=== PATIENT | female | born 1950 | race Caucasian/White ===

== ENCOUNTER 2021-11-03 10:42 | Inpatient (IN) | payer MEDICARE, OTHER ==
[~2021-11-03] VITALS: Ht 152.4 cm; Wt 65.8 kg
--- NOTE | 2021-11-03 10:59 | NUR ---
BIB FAMILY REQUESTING PSYCH EVAL. CALLING 911 AND WANDER OUT THE HOUSE, AAOX2, BREATHING EVEN AND NON LABORED, CONNECTED TO MONITOR, CHANGED INTO A GOWN, PROVIDED WARM BLANKET FOR COMFORT, AWAITING MD ORDERS
[2021-11-03 12:04] LABS: BASOPHILS # (AUTO) 0.1 K/uL (0.0-0.2); BASOPHILS % (AUTO) 0.6 % (0.0-2.0); EOSINOPHILS % (AUTO) 0.2 % (0.0-6.0); HEMATOCRIT 39 % (33-45); HEMOGLOBIN 12.6 g/dL (11.5-14.8); LYMPHOCYTES # (AUTO) 2.3 K/uL (0.8-4.8); LYMPHOCYTES % (AUTO) 15.6 % (20.0-44.0); MEAN CORPUSCULAR HGB CONC 33 g/dl (31.0-36.0); MEAN CORPUSCULAR VOLUME 87 fL (82-100); MONOCYTES # (AUTO) 0.8 K/uL (0.1-1.30); MONOCYTES % (AUTO) 5.1 % (2.0-12.0); NEUTROPHILS # (AUTO) 11.5 K/uL (1.8-8.9); NEUTROPHILS % (AUTO) 78.5 % (43.0-81.0); PLATELET COUNT (AUTO) 444 K/uL (150-450); RED BLOOD CELL COUNT(AUTO) 4.45 MIL/uL (4.0-5.2); WHITE BLOOD COUNT (AUTO) 14.7 K/uL (4.3-11.0)
--- NOTE | 2021-11-03 12:08 | NUR ---
SW Note: SW was called from patient's son Daniel ([phone]) and Maged ([phone]) concerned about their mother. She shared that pt has been psychotic and has been hitting family members. They reported that pt's boyfriend three days ago and she has become more psychotic. They expressed that pt will need placement and they are unable to take care of pt. MARY notified director Angelica Irving.
--- NOTE | 2021-11-03 12:20 | NUR ---
URINE COLLECTED AND SENT TO LAB
[2021-11-03 12:24] LABS: CALCIUM, SERUM 8.7 mg/dL (8.5-10.1); CARBON DIOXIDE 24 mmol/L (21-32); CHLORIDE 99 mmol/L (98-107); CREATININE 0.8 mg/dL (0.6-1.3); GLUCOSE 107 mg/dL (74-106); POTASSIUM 3.8 mmol/L (3.5-5.1); SODIUM SERUM 133 mmol/L (136-145); UREA NITROGEN, BLOOD 23 mg/dL (7-18)
--- NOTE | 2021-11-03 12:30 | NUR ---
PER ELLEN GARZA; PT IS MEDICALLY CLEAR
[2021-11-03 12:31] LABS: ACETAMINOPHEN 14 ug/ml (10-30); ALANINE AMINOTRANSFERASE 36 U/L (12-78); ALBUMIN 3.5 g/dL (3.4-5.0); ALCOHOL, BLOOD < 3 mg/dL (0-0); ALKALINE PHOSPHATASE 71 U/L (46-116); ASPARTATE AMINOTRANSFERASE 26 U/L (15-37); BILIRUBIN,DIRECT 0.1 mg/dL (0.0-0.2); BILIRUBIN,TOTAL 0.6 mg/dL (0.2-1.0); TOTAL PROTEIN, SERUM 7.3 g/dL (6.4-8.2)
--- NOTE | 2021-11-03 12:58 | NUR ---
COVID ANTIGEN SWAB COLLECTED AND SENT TO LAB
[2021-11-03 14:41] LABS: BILIRUBIN,URINE NEGATIVE (NEGATIVE); COLOR,URINE YELLOW (YELLOW); LEUKOCYTE ESTERASE ,URINE NEGATIVE (NEGATIVE); NITRITE, URINE NEGATIVE (NEGATIVE); PROTEIN,URINE TRACE mg/dl (NEGATIVE); UGLUCOSE NEGATIVE (NEGATIVE); UROBILINOGEN,URINE 0.2 EU/dL (0.2)
[2021-11-03 15:32] LABS: BACTERIA,URINE None seen /HPF (None Seen); RBC,URINE 0-2 /HPF (0-2); SQUAMOUS EPITHELIAL CELL,UR 0-2 /HPF (None Seen); WBC,URINE 0-2 /HPF (0-3)
[2021-11-03 15:33] LABS: MUCUS,URINE Few /LPF (None Seen)
[2021-11-03] MEDS ORDERED: LURA40TA PO (15:50)
[2021-11-03] MEDS ORDERED: SIMV-49 PO (15:50)
[2021-11-03] MEDS ORDERED: METO25TA6 PO (15:50)
[2021-11-03] MEDS ORDERED: AMYL1CAP58 PO (15:50)
[2021-11-03] MEDS ORDERED: ESCI20TA PO (15:50)
[2021-11-03] MEDS ORDERED: PANT40TA49 PO (15:50)
[2021-11-03] MEDS ORDERED: AMLO-212 PO (15:50)
[2021-11-03] MEDS ORDERED: TRAZ150T75 PO (15:50)
[2021-11-03] MEDS ORDERED: VALS40TA12 PO (15:50)
[2021-11-03] MEDS ORDERED: TAMS-12 PO (15:50)
[2021-11-03] MEDS ORDERED: LEVO125T97 PO (15:50)
[2021-11-03] MEDS ORDERED: GABA300C PO (15:50)
--- NOTE | 2021-11-03 21:28 | NUR ---
GPS 212-A
--- NOTE | 2021-11-03 21:57 | NUR ---
REPORT GIVEN TO KUSH SINGH
--- NOTE | 2021-11-03 22:28 | NUR ---
PATIENT TRANSFERRED, VSS, NO ACUTE DISTRESS NOTED
[2021-11-03] MEDS ORDERED: MAGNESIUM HYDROXIDE 30 ML UDC PO PRN (23:00)
[2021-11-03] MEDS ORDERED: MAG HYDROX/AL HYDROX/SIMETH 30 ML UDC PO PRN (23:00)
[2021-11-03] MEDS ORDERED: BLOOD SUGAR DIAGNOSTIC 1 EACH STRIP IN ONE (23:30)
[2021-11-03 23:47] VITALS: BP 133/88
[2021-11-04] MEDS: ACETAMINOPHEN 325 MG TABLET PO PRN (00:28)
--- NOTE | 2021-11-04 00:50 | NUR ---
GPS EMERGENCY MEDICINE SPECIALIST NOTES: PATIENT ARRIVED THIS UNIT ON A STRETCHER WITH AN ER ESCORT AT 2230. PATIENT IS ON A 5150 HOLD FOR GD. HOLD WAS PLACED ON 11/03/21 @ 1600. PER HOLD, PATIENT WAS BIB SON D/T ERRATIC BEHAVIOR. PATIENT HAS NOT BEEN EATING NOR DRINKING. PATIENT HAS CALLED 911 AT LEAST 10 TIMES OVER THE PAST TWO MONTHS, CALLING FAMILY MEMBER FOR FOOD EVEN THOUGH SHE HAS LOTS OF FOOD AT HOME. PATIENT FOUND WALKING IN THE MIDDLE OF THE STREET FOR NO REASON. PATIENT IS PARANOID, DELUSIONAL, EASILY AGITATED AND AGGRESSIVE WITH FAMILY MEMBERS. UPON FACE TO FACE EVALUATION, PATIENT IS A/O X3, NEEDY, ANXIOUS, RESTLESS, DISORGANIZED, COOPERATIVE. PATIENT HAS A STOMA. PATIENT RESPIRATION IS EVEN AND UNLABORED WITH EQUAL RISE AND FALL OF THE CHEST, ON ROOM AIR. PATIENT HAS NO S/S OF DISTRESS. PATIENT DENIES SI/HI AT THIS TIME. PATIENT ADVISED OF HER HOLD AND PATIENT RIGHTS BOOKLET AND PRESCRIPTION GUIDE BOOKLET GIVEN. PATIENT BELONGINGS CHECKED FOR CONTRABAND. PATIENT REFUSED SKIN ASSESSMENT. DO770BI/DL. MRSA BOTH NARES SWAPPED AND SENT TO THE LAB. PATIENT REFUSED TO SIGN ADMISSION PAPERWORK. PATIENT IS UNDER THE PSYCHIATRIC CARE OF DR. GARCIA AND MEDICAL CARE OF SHANDRA. MED RECON DONE. PATIENT ORIENTED TO ROOM AND STAFF. PATIENT HAS WEAK GAIT. PATIENT EDUCATED ON THE USE OF CALL QUINTANILLA TO ASK FOR ASSISTANCE. PATIENT BED SIDE RAILS UP X2 FOR SAFETY. BED ALARM ON. BED LOCKED AND IN LOWEST POSITION. PATIENT OFFERED FLUID AND SNACKS TOLERATED. WILL CONTINUE TO MONITOR Q15 MINUTES FOR MOOD, SAFETY AND BEHAVIOR.
[2021-11-04 01:24] VITALS: BP 133/88
[2021-11-04] MEDS: LEVOTHYROXINE SODIUM 125 MCG TABLET PO SCH (06:14)
--- NOTE | 2021-11-04 06:52 | NUR ---
GPS RN CLOSING NOTES: PATIENT IS CURRENTLY SLEEPING. PATIENT SLEPT 6HR THIS SHIFT. NO S/S OF DISTRESS. RESPIRATION EVEN AND UNLABORED WITH EQUAL RISE AND FALL OF THE CHEST, ON ROOM AIR. BED IN LOWEST POSITION AND LOCKED, CALL QUINTANILLA WITHIN REACH. ALL PATIENT CARE NEEDS HAVE BEEN MET ANTICIPATED. WILL CONTINUE TO MONITOR AND ENDORSE TO AM SHIFT
[2021-11-04] MEDS: PANTOPRAZOLE 40 MG TABLET.DR PO SCH ×2 (07:30→15:56)
[2021-11-04 07:57] LABS: BASOPHILS # (AUTO) 0.1 K/uL (0.0-0.2); BASOPHILS % (AUTO) 0.6 % (0.0-2.0); HEMATOCRIT 37 % (33-45); HEMOGLOBIN 12.3 g/dL (11.5-14.8); LYMPHOCYTES # (AUTO) 2.8 K/uL (0.8-4.8); LYMPHOCYTES % (AUTO) 31.6 % (20.0-44.0); MEAN CORPUSCULAR HGB CONC 33 g/dl (31.0-36.0); MEAN CORPUSCULAR VOLUME 87 fL (82-100); MONOCYTES # (AUTO) 0.5 K/uL (0.1-1.30); MONOCYTES % (AUTO) 5.9 % (2.0-12.0); NEUTROPHILS # (AUTO) 5.4 K/uL (1.8-8.9); NEUTROPHILS % (AUTO) 60.9 % (43.0-81.0); PLATELET COUNT (AUTO) 408 K/uL (150-450); RED BLOOD CELL COUNT(AUTO) 4.26 MIL/uL (4.0-5.2); WHITE BLOOD COUNT (AUTO) 8.9 K/uL (4.3-11.0)
[2021-11-04 08:00] VITALS: BP 128/80
[2021-11-04] MEDS: LIPASE/PROTEASE/AMYLASE 1 EACH CAPSULE.DR PO SCH ×3 (08:00→18:00)
[2021-11-04] MEDS: METOPROLOL TARTRATE 25 MG TABLET PO SCH (09:00)
[2021-11-04] MEDS: GABAPENTIN 300 MG CAPSULE PO SCH ×3 (09:00→15:56)
[2021-11-04] MEDS: VALSARTAN 40 MG TABLET PO SCH (09:00)
[2021-11-04] MEDS: AMLODIPINE BESYLATE 5 MG TABLET PO SCH (09:00)
--- NOTE | 2021-11-04 09:30 | NUR ---
GPS/RN PER SPEECH THERAPIST EVALUATION PT HAS TO BE NPO NO MEDS TILL CLEARED BY SWALLOW EVAL.
--- NOTE | 2021-11-04 09:47 | NUR ---
MARY Initial Discharge plan: Patient currently resides at [address] [place] [address]; ([phone]). Patient is a . Per pts son in law Daniel ([phone]) and Maged ([phone]) stated that they are unable to take care of pt at this time and pt would need a SNF. MARY will work with the MD and treatment team
--- NOTE | 2021-11-04 10:00 | NUR ---
Social Work Note/Substance Abuse Intervention: Patient was provided with a brief substance abuse intervention and referred to [facility] ([phone]), [facility] ([phone]), and [facility] ([phone]). Pt denied any use of substance abuse. Family reported pt drinks everyday.
--- NOTE | 2021-11-04 11:58 | NUR ---
MARY Family Contact: SW contacted patient's son in law Daniel ([phone]) and left a detailed voicemail of pt's admission and the plan.
--- NOTE | 2021-11-04 12:55 | NUR ---
SNF Referral: MARY sent clinicals to Alicia rodríguez from [facility] ([phone]) for placement option. SW sent H & P, progress notes, and medication list.
--- NOTE | 2021-11-04 13:04 | NUR ---
GPS/RN PT CONTINUES NPO . DR GARCIA AND MARU PROGRAMMING INTERN AWARE OF SPEECH THERAPIST ASSESSMENT. PER TREND INVESTIGATOR SWALLOW EVAL WILL BE DONE ON Sunday11/07/21
[2021-11-04] MEDS ORDERED: IV D5/ 0.9% NACL 1,000 ML IV SCH (13:30)
--- NOTE | 2021-11-04 14:32 | NUR ---
Received a call from Vera Lisa and ordered accu check ac and hs with no sliding scale.
--- NOTE | 2021-11-04 15:09 | NUR ---
TO DO VIDEO SWALLOW EXAM ON TUESDAY 11/07 PER SPEECH THERAPIST
[2021-11-04 16:00] VITALS: BP 126/87
[2021-11-04] MEDS: BLOOD SUGAR DIAGNOSTIC 1 EACH STRIP IN SCH ×2 (17:30→22:21)
[2021-11-04 20:00] VITALS: BP 122/83
[2021-11-04] MEDS: SIMVASTATIN 20 MG TABLET PO SCH (22:00)
[2021-11-04] MEDS: TAMSULOSIN 0.4 MG CAP.SR.24H PO SCH (22:00)
[2021-11-05] MEDS: LEVOTHYROXINE SODIUM 125 MCG TABLET PO SCH (07:00)
[2021-11-05] MEDS: PANTOPRAZOLE 40 MG TABLET.DR PO SCH ×2 (07:30→15:33)
[2021-11-05] MEDS: LIPASE/PROTEASE/AMYLASE 1 EACH CAPSULE.DR PO SCH ×3 (07:35→16:25)
[2021-11-05 08:00] VITALS: BP 138/83
--- NOTE | 2021-11-05 08:30 | NUR ---
GPS/RN ACCUCHECK WITH DY=119. IV FLUIDS RUNNING WELL
[2021-11-05] MEDS: VALSARTAN 40 MG TABLET PO SCH (08:40)
[2021-11-05] MEDS: METOPROLOL TARTRATE 25 MG TABLET PO SCH (08:40)
[2021-11-05] MEDS: AMLODIPINE BESYLATE 5 MG TABLET PO SCH (08:41)
[2021-11-05] MEDS: GABAPENTIN 300 MG CAPSULE PO SCH ×3 (08:41→16:24)
[2021-11-05] MEDS ORDERED: DEXTROSE 50%-WATER 50 ML DISP.SYRIN IV PRN (10:30)
[2021-11-05] MEDS ORDERED: INSULIN REGULAR, HUMAN 100 UNIT/ML 3 ML VIAL SQ PRN (10:30)
--- NOTE | 2021-11-05 12:43 | NUR ---
GPS/RN ACCUCHECK WITH QN=779. no distress noted pt is resting comfortably in the bed
[2021-11-05] MEDS: BLOOD SUGAR DIAGNOSTIC 1 EACH STRIP IN SCH ×2 (13:27→18:00)
[2021-11-05 15:11] LABS: BASOPHILS # (AUTO) 0.1 K/uL (0.0-0.2); BASOPHILS % (AUTO) 0.6 % (0.0-2.0); EOSINOPHILS % (AUTO) 0.5 % (0.0-6.0); HEMATOCRIT 37 % (33-45); HEMOGLOBIN 12.4 g/dL (11.5-14.8); LYMPHOCYTES # (AUTO) 2.5 K/uL (0.8-4.8); LYMPHOCYTES % (AUTO) 27.4 % (20.0-44.0); MEAN CORPUSCULAR HGB CONC 33 g/dl (31.0-36.0); MEAN CORPUSCULAR VOLUME 87 fL (82-100); MONOCYTES # (AUTO) 0.7 K/uL (0.1-1.30); MONOCYTES % (AUTO) 7.1 % (2.0-12.0); NEUTROPHILS # (AUTO) 5.9 K/uL (1.8-8.9); NEUTROPHILS % (AUTO) 64.4 % (43.0-81.0); PLATELET COUNT (AUTO) 421 K/uL (150-450); WHITE BLOOD COUNT (AUTO) 9.2 K/uL (4.3-11.0)
--- NOTE | 2021-11-05 15:31 | NUR ---
GPS/RN PT PULLED OUT THE H/L. NO BLEEDING. DOCCLUSIVE DRESSING APPLIED. WILL START NEW H/L
[2021-11-05 15:35] LABS: CALCIUM, SERUM 8.8 mg/dL (8.5-10.1); CREATININE 0.6 mg/dL (0.6-1.3); POTASSIUM 3.5 mmol/L (3.5-5.1)
[2021-11-05 16:00] VITALS: BP 119/85
[2021-11-05] MEDS: IV D5/ 0.9% NACL 1,000 ML IV PRN (17:57)
[2021-11-05 20:00] VITALS: BP 123/80
[2021-11-05] MEDS: TAMSULOSIN 0.4 MG CAP.SR.24H PO SCH (22:00)
[2021-11-05] MEDS: SIMVASTATIN 20 MG TABLET PO SCH (22:00)
[2021-11-06] MEDS: BLOOD SUGAR DIAGNOSTIC 1 EACH STRIP IN SCH ×4 (00:56→17:12)
--- NOTE | 2021-11-06 00:56 | NUR ---
GPS RN NOTES: ACCU CHEK AT 0055 BS104
[2021-11-06] MEDS: LEVOTHYROXINE SODIUM 125 MCG TABLET PO SCH (07:00)
--- NOTE | 2021-11-06 07:12 | NUR ---
GPS RN CLOSING NOTES: PATIENT IS AWAKE, A/O X3. PATIENT SLEPT 8HR THIS SHIFT. NO S/S OF DISTRESS. RESPIRATION EVEN AND UNLABORED WITH EQUAL RISE AND FALL OF THE CHEST, ON ROOM AIR. BED IN LOWEST POSITION AND LOCKED, CALL QUINTANILLA WITHIN REACH. ALL PATIENT CARE NEEDS HAVE BEEN MET ANTICIPATED. WILL CONTINUE TO MONITOR AND ENDORSE TO AM SHIFT
[2021-11-06] MEDS: PANTOPRAZOLE 40 MG TABLET.DR PO SCH ×2 (07:30→16:30)
[2021-11-06] MEDS: LIPASE/PROTEASE/AMYLASE 1 EACH CAPSULE.DR PO SCH ×3 (07:54→18:00)
[2021-11-06] MEDS: METOPROLOL TARTRATE 25 MG TABLET PO SCH (07:55)
[2021-11-06] MEDS: GABAPENTIN 300 MG CAPSULE PO SCH ×3 (07:55→17:00)
[2021-11-06] MEDS: VALSARTAN 40 MG TABLET PO SCH (07:55)
[2021-11-06] MEDS: AMLODIPINE BESYLATE 5 MG TABLET PO SCH (07:56)
[2021-11-06 08:00] VITALS: BP_SYST 129; BP_SYST 139; BP_DIAS 75; BP_DIAS 95
[2021-11-06] MEDS: IV D5/ 0.9% NACL 1,000 ML IV PRN ×2 (09:27→17:09)
--- NOTE | 2021-11-06 12:55 | NUR ---
GPS RN NOTES: BS145. PATIENT REFUSED 2U REGULAR INSULIN PER SLIDING SCALE ORDER. PER PATIENT "I'M HUNGRY AND I'M NOT DIABETIC". EDUCATION PROVIDED ON THE IMPORTANCE OF MEDICATION COMPLIANCE. WILL CONTINUE TO MONITOR.
--- NOTE | 2021-11-06 16:48 | NUR ---
GPS RN NOTES: ALL AM AND PM PO MEDS HELD PER NPO ORDER.
--- NOTE | 2021-11-06 16:52 | NUR ---
GPS RN NOTES: PATIENT CURRENTLY LAYING IN BED, AWAKE, A/O X2-3. RESTLESS, IRRITABLE, AGITATED, REDIRECTABLE. NO S/S OF DISTRESS. RESPIRATION EVEN AND UNLABORED WITH EQUAL RISE AND FALL OF THE CHEST, ON ROOM AIR. BED IN LOWEST POSITION AND LOCKED, SIDE RAILS UP X2 FOR SAFETY. CALL BE WITHIN REACH. ENDORSING TO CHARGE NURSE.
--- NOTE | 2021-11-06 17:12 | NUR ---
GPS RN NOTES: PATIENT REFUSED ACCU CHEK.
[2021-11-06 20:55] VITALS: BP 134/88
[2021-11-06] MEDS: TAMSULOSIN 0.4 MG CAP.SR.24H PO SCH (22:00)
[2021-11-06] MEDS: SIMVASTATIN 20 MG TABLET PO SCH (22:00)
--- NOTE | 2021-11-06 23:00 | NUR ---
RN NOTES: NIGHT SCHEDULE PO MEDS HELD PER MD NPO ORDER, WILL CONTINUE WITH CARE .
[2021-11-07] MEDS: BLOOD SUGAR DIAGNOSTIC 1 EACH STRIP IN SCH ×4 (06:00→18:25)
[2021-11-07] MEDS: LEVOTHYROXINE SODIUM 125 MCG TABLET PO SCH (07:00)
--- NOTE | 2021-11-07 07:00 | NUR ---
RN NOTES: PT. KEPT NPO FOR XRAY SWALLOW EVALUATIONS, PER MD GO, WILL CONTINUE WITH CARE.
[2021-11-07] MEDS: PANTOPRAZOLE 40 MG TABLET.DR PO SCH ×2 (07:02→16:55)
[2021-11-07 08:00] VITALS: BP 130/74
[2021-11-07] MEDS: LIPASE/PROTEASE/AMYLASE 1 EACH CAPSULE.DR PO SCH ×3 (08:00→17:21)
[2021-11-07] MEDS: IV D5/ 0.9% NACL 1,000 ML IV PRN (08:02)
[2021-11-07] MEDS: DIVALPROEX SODIUM 125 MG CAP.SPRINK PO SCH ×3 (09:00→17:20)
[2021-11-07] MEDS: VALSARTAN 40 MG TABLET PO SCH (09:00)
[2021-11-07] MEDS: METOPROLOL TARTRATE 25 MG TABLET PO SCH (09:00)
[2021-11-07] MEDS: AMLODIPINE BESYLATE 5 MG TABLET PO SCH (09:00)
[2021-11-07] MEDS: GABAPENTIN 300 MG CAPSULE PO SCH ×3 (09:00→17:20)
--- NOTE | 2021-11-07 10:07 | NUR ---
SNF Contact: SW received a call from Alicia rodríguez from [facility] ([phone]) who stated they cannot accept pt due to not having skilled needs.
--- NOTE | 2021-11-07 10:11 | NUR ---
SNF Referral: MARY sent referrals to Tabitha from [facility] ([phone]) for placement option. SW sent H & P, progress notes, and medication list.
--- NOTE | 2021-11-07 10:20 | NUR ---
RN NOTES: PT. SEND OUT FOR THE X-RAY SWALLOW EVALUATIONS IN STAB[place] CONDTION WITH STAFF MEMEBER, NO ACUTE DISTRESS NOTED , WILL CONTINUE WITH CARE.
--- NOTE | 2021-11-07 10:20 | NUR ---
RN NOTES: NOTIFIED PT. DAUGHTER ROSALIO AT THIS PH# , PT. IS GOING FOR X- RAY SWALLOW EVALUATIONS , WILL CONTINUE WITH CARE.
--- NOTE | 2021-11-07 10:34 | NUR ---
RN NOTES: AM SCHEDULE PO MEDS HELD PER MD NPO ORDER, WILL CONTINUE WITH CARE .
--- NOTE | 2021-11-07 11:00 | NUR ---
RN NOTES: DR. GARCIA MADE AWRE OF PT. X-RAY SWALLOW DONE , NEW ORDES NOTED AND CARRIED OUT.
--- NOTE | 2021-11-07 11:05 | NUR ---
RN NOTES: PATIENT X-RAY SWALLOW EVALUATIONS DONE, AMBER MAHONEY NOTIFIED OF THE PROCEDURE IS DONE , PER MD CONTINUE / CRUSHED ALL THE PO MEDS , AND CONTINUE TO MONITOR. NEW ORDERS NOTED AND CARRIED OUT PER SPEECH THERAPIST PT. IS ON CHOP FINE DIET WITH HONEY THICK LIQUIDS, AMBER NASCIMENTO MADE AWARE. WILL CONTINUE WITH CARE.
--- NOTE | 2021-11-07 11:45 | NUR ---
SNF Contact: MARY spoke with Tabitha from [facility] ([phone]) who stated pt is accepted.
--- NOTE | 2021-11-07 12:39 | NUR ---
RN NOTES: PT. EAT LUNCH 100% , PT. TOLERATED WELL FOOD AND PO LIQUIDS , NO ANY ACUTE DISTRESS NOTED, NO ANY ASPIRATION PROBLEMS NOTED DURING WITH FOOD OR ANY PO LIQUIDS, AT AFTERNOON PT. TOOK ALL SCHEDULE MEDS WITHOUT ANY PROBLEM OR DISTRESS , PT. RESTING WELL AT THIS TIME. , WILL CONTINUE WITH CARE.
--- NOTE | 2021-11-07 13:10 | NUR ---
RN NOTES: NOTIFIED PT. DAUGHTER ROSALIO AT THIS PH# , PT. X- RAY EVALUATIONS DONE,AND PT. ATE 100% LUNCH , PO HONEY THICK LIQUIDS TOLERATING WELL , AFTERNOON TOOK ALL PO MEDS, NO ANY ASPIRATING PROBLEMS NOTED.TOLERATING WELL, WILL CONTINUE WITH CARE.
--- NOTE | 2021-11-07 13:22 | NUR ---
MARY Family Contact: SW contacted patient's son in law Daniel ([phone]) that pt is accepted at [facility] and they are agreeable.
--- NOTE | 2021-11-07 13:34 | NUR ---
MARY Family Contact: SW contacted patient's son in law Daniel ([phone]) and he stated that pt has been calling 4 times during the weekend to [employer], random numbers, and family members stating that she is naked. MARY informed Dr. Baeza.
[2021-11-07 16:00] VITALS: BP 126/79
--- NOTE | 2021-11-07 16:18 | NUR ---
RN NOTES: RECIVED NEW ORDES FROM MABER MAHONEY D/Rivka IVD5 NS 1,000 ML BID, NEW ORDES NOTED AND CARRIED OUT.
[2021-11-07 16:21] LABS: BASOPHILS % (AUTO) 0.4 % (0.0-2.0); EOSINOPHILS % (AUTO) 0.5 % (0.0-6.0); HEMATOCRIT 37 % (33-45); HEMOGLOBIN 11.9 g/dL (11.5-14.8); LYMPHOCYTES # (AUTO) 2.4 K/uL (0.8-4.8); MEAN CORPUSCULAR HGB CONC 33 g/dl (31.0-36.0); MEAN CORPUSCULAR VOLUME 87 fL (82-100); MONOCYTES % (AUTO) 8.8 % (2.0-12.0); NEUTROPHILS # (AUTO) 7.6 K/uL (1.8-8.9); NEUTROPHILS % (AUTO) 68.3 % (43.0-81.0); PLATELET COUNT (AUTO) 402 K/uL (150-450); RED BLOOD CELL COUNT(AUTO) 4.21 MIL/uL (4.0-5.2); WHITE BLOOD COUNT (AUTO) 11.1 K/uL (4.3-11.0)
[2021-11-07 17:21] LABS: CALCIUM, SERUM 8.5 mg/dL (8.5-10.1); CREATININE 0.6 mg/dL (0.6-1.3); PHOSPHORUS 2.9 mg/dL (2.5-4.9); POTASSIUM 3.3 mmol/L (3.5-5.1)
[2021-11-07 20:00] VITALS: BP 116/78
[2021-11-07] MEDS: TAMSULOSIN 0.4 MG CAP.SR.24H PO SCH (21:26)
[2021-11-07] MEDS: SIMVASTATIN 20 MG TABLET PO SCH (21:26)
[2021-11-07] MEDS: OLANZAPINE 10 MG TABLET PO SCH (21:26)
[2021-11-08] MEDS: BLOOD SUGAR DIAGNOSTIC 1 EACH STRIP IN SCH ×5 (06:00→22:01)
--- NOTE | 2021-11-08 06:43 | NUR ---
RN GPS NOTE: PATIENT REFUSED LABS WELL MORNING BLOOD SUGAR CHECK. WILL CONTINUE TO MONITOR CLOSELY Q 15 MINUTES.
[2021-11-08] MEDS: PANTOPRAZOLE 40 MG TABLET.DR PO SCH ×2 (06:54→17:06)
[2021-11-08] MEDS: LEVOTHYROXINE SODIUM 125 MCG TABLET PO SCH (06:54)
[2021-11-08 08:00] VITALS: BP 104/72
[2021-11-08] MEDS: GABAPENTIN 300 MG CAPSULE PO SCH ×3 (08:28→17:06)
[2021-11-08] MEDS: DIVALPROEX SODIUM 125 MG CAP.SPRINK PO SCH ×3 (08:29→17:06)
[2021-11-08] MEDS: VALSARTAN 40 MG TABLET PO SCH (08:29)
[2021-11-08] MEDS: LIPASE/PROTEASE/AMYLASE 1 EACH CAPSULE.DR PO SCH ×3 (08:29→17:06)
[2021-11-08] MEDS: METOPROLOL TARTRATE 25 MG TABLET PO SCH (08:30)
[2021-11-08] MEDS: AMLODIPINE BESYLATE 5 MG TABLET PO SCH (08:30)
--- NOTE | 2021-11-08 13:55 | NUR ---
Court Hearing: Patient's court hearing for 5230 was today and it was upheld for GD.
--- NOTE | 2021-11-08 15:28 | NUR ---
PT REFUSED BLOOD DRAW. PER ARCHANA Garcia BARREL RIFLER HOOK.
[2021-11-08 16:00] VITALS: BP 100/60
[2021-11-08 19:35] LABS: CALCIUM, SERUM 8.4 mg/dL (8.5-10.1); CREATININE 0.7 mg/dL (0.6-1.3); MAGNESIUM 1.9 mg/dL (1.8-2.4); PHOSPHORUS 3.9 mg/dL (2.5-4.9); POTASSIUM 3.7 mmol/L (3.5-5.1)
[2021-11-08 20:30] LABS: BASOPHILS # (AUTO) 0.1 K/uL (0.0-0.2); BASOPHILS % (AUTO) 0.6 % (0.0-2.0); EOSINOPHILS % (AUTO) 0.9 % (0.0-6.0); HEMATOCRIT 34 % (33-45); HEMOGLOBIN 11.2 g/dL (11.5-14.8); LYMPHOCYTES # (AUTO) 2.7 K/uL (0.8-4.8); LYMPHOCYTES % (AUTO) 26.6 % (20.0-44.0); MEAN CORPUSCULAR HGB CONC 34 g/dl (31.0-36.0); MEAN CORPUSCULAR VOLUME 87 fL (82-100); MONOCYTES # (AUTO) 0.7 K/uL (0.1-1.30); MONOCYTES % (AUTO) 7.1 % (2.0-12.0); NEUTROPHILS # (AUTO) 6.5 K/uL (1.8-8.9); NEUTROPHILS % (AUTO) 64.8 % (43.0-81.0); PLATELET COUNT (AUTO) 372 K/uL (150-450); RED BLOOD CELL COUNT(AUTO) 3.83 MIL/uL (4.0-5.2)
[2021-11-08] MEDS: SIMVASTATIN 20 MG TABLET PO SCH (21:42)
[2021-11-08] MEDS: TAMSULOSIN 0.4 MG CAP.SR.24H PO SCH (21:42)
[2021-11-08] MEDS: OLANZAPINE 10 MG TABLET PO SCH (21:43)
--- NOTE | 2021-11-08 22:07 | NUR ---
GPS RN NOTE: PATIENT INSISTED TO CHECK HER BLOOD SUGAR LEVEL AT THIS TIME AND WANTS TO EAT SNACK. PATIENT ASKED THE NURSE NOT TO WAKE HER UP AT 0000 TO CHEK HER BLOOD SUGAR SCHEDULED. PATIENT'S LAST ACCU CHECK WAS DONE 27 HRS AGO. BS IS 109 MG/DL AT THIS TIME. OFFERED SNACK & WILL MONITOR CLOSELY FOR ASPIRATION PRECAUTIONS.
[2021-11-08 22:44] VITALS: BP 103/65
[2021-11-09] MEDS: BLOOD SUGAR DIAGNOSTIC 1 EACH STRIP IN SCH ×3 (06:00→17:15)
--- NOTE | 2021-11-09 06:35 | NUR ---
RN NOTE: PATIENT REFUSED BLOOD SUGAR CHECK. ENCOURAGED X3, PT. STRONGLY REFUSED, PER PT. I WANT REST AT THIS TIME.
[2021-11-09] MEDS: LEVOTHYROXINE SODIUM 125 MCG TABLET PO SCH (07:06)
[2021-11-09] MEDS: PANTOPRAZOLE 40 MG TABLET.DR PO SCH ×2 (07:06→17:24)
[2021-11-09] MEDS: LIPASE/PROTEASE/AMYLASE 1 EACH CAPSULE.DR PO SCH ×3 (08:19→17:26)
[2021-11-09] MEDS: GABAPENTIN 300 MG CAPSULE PO SCH ×3 (08:19→17:25)
[2021-11-09] MEDS: DIVALPROEX SODIUM 125 MG CAP.SPRINK PO SCH ×3 (08:19→17:25)
[2021-11-09] MEDS: AMLODIPINE BESYLATE 5 MG TABLET PO SCH (08:20)
[2021-11-09] MEDS: METOPROLOL TARTRATE 25 MG TABLET PO SCH (08:20)
[2021-11-09] MEDS: VALSARTAN 40 MG TABLET PO SCH (08:20)
[2021-11-09 08:52] VITALS: BP 113/74
--- NOTE | 2021-11-09 10:23 | NUR ---
MARY Family Contact: MARY received a call from Savannah daughter ([phone]) who stated that she does not want her mother to go to a SNF. MARY explained that this needs to be discussed within family because son in law Daniel and Son Maged are in agreement for pt to go to a SNF because it is unsafe for pt to live alone. MARY contacted Daniel ([phone]) and expressed Savannah's concern. Daniel stated that Savannah ([phone]) cannot make that decision because she was recently on a psychiatric hold and is an alcoholic and does not a stable location to stay at. Daniel stated that he is working with a world travel counselor to get conservatorship towards Savannah the daughter because she is out of control. MARY expressed that this needs to be discussed within family. Daniel reported that his (who is pt's other daughter) and son Maged ([phone]) are all in agreement for pt to go to a nursing facility. They are agreeable with [facility].
[2021-11-09] MEDS: ACETAMINOPHEN 325 MG TABLET PO PRN ×2 (12:17→22:02)
[2021-11-09 16:13] VITALS: BP 100/74
[2021-11-09 19:45] VITALS: BP 127/68
[2021-11-09] MEDS: SIMVASTATIN 20 MG TABLET PO SCH (21:19)
[2021-11-09] MEDS: TAMSULOSIN 0.4 MG CAP.SR.24H PO SCH (21:19)
[2021-11-09] MEDS: OLANZAPINE 10 MG TABLET PO SCH (21:20)
[2021-11-09] MEDS: TEMAZEPAM 7.5 MG CAPSULE PO PRN (21:20)
[2021-11-10] MEDS: BLOOD SUGAR DIAGNOSTIC 1 EACH STRIP IN SCH ×4 (06:00→17:16)
[2021-11-10] MEDS: LEVOTHYROXINE SODIUM 125 MCG TABLET PO SCH (08:47)
[2021-11-10] MEDS: GABAPENTIN 300 MG CAPSULE PO SCH ×3 (08:47→17:16)
[2021-11-10] MEDS: PANTOPRAZOLE 40 MG TABLET.DR PO SCH ×2 (08:47→17:16)
[2021-11-10] MEDS: LIPASE/PROTEASE/AMYLASE 1 EACH CAPSULE.DR PO SCH ×3 (08:47→17:16)
[2021-11-10] MEDS: DIVALPROEX SODIUM 125 MG CAP.SPRINK PO SCH ×2 (08:47→17:16)
[2021-11-10] MEDS: VALSARTAN 40 MG TABLET PO SCH (08:48)
[2021-11-10] MEDS: AMLODIPINE BESYLATE 5 MG TABLET PO SCH (08:49)
[2021-11-10] MEDS: METOPROLOL TARTRATE 25 MG TABLET PO SCH (08:50)
[2021-11-10] MEDS: ACETAMINOPHEN 325 MG TABLET PO PRN (11:52)
--- NOTE | 2021-11-10 11:55 | NUR ---
RN-NOTES PATIENT C/O HEADACHE AND REQUESTING TYLENOL.TYLENOL 650MG P.O GIVEN PRN ORDER.
--- NOTE | 2021-11-10 12:55 | NUR ---
RN-NOTES PATIENT STATED TYLENOL HELPS WITH HER HEADACHE.
[2021-11-10 15:46] VITALS: BP 96/63
[2021-11-10 20:00] VITALS: BP 116/69
[2021-11-10] MEDS: SIMVASTATIN 20 MG TABLET PO SCH (22:03)
[2021-11-10] MEDS: TAMSULOSIN 0.4 MG CAP.SR.24H PO SCH (22:03)
[2021-11-10] MEDS: OLANZAPINE 10 MG TABLET PO SCH (22:04)
--- NOTE | 2021-11-10 23:52 | NUR ---
GPS RN NOTES: ZYPREXA 2.5MG ADMINISTERED PO. 7.5MG WASTED WASTED PER MD ORDER.
[2021-11-11] MEDS: BLOOD SUGAR DIAGNOSTIC 1 EACH STRIP IN SCH ×2 (00:05→06:55)
[2021-11-11] MEDS: LEVOTHYROXINE SODIUM 125 MCG TABLET PO SCH (06:40)
[2021-11-11] MEDS: PANTOPRAZOLE 40 MG TABLET.DR PO SCH ×2 (06:40→16:33)
--- NOTE | 2021-11-11 07:01 | NUR ---
GPS RN CLOSING NOTES: PATIENT IS AWAKE, A/O X3. PATIENT SLEPT 9HR THIS SHIFT. NO S/S OF DISTRESS. RESPIRATION EVEN AND UNLABORED WITH EQUAL RISE AND FALL OF THE CHEST, ON ROOM AIR. BED IN LOWEST POSITION AND LOCKED, CALL QUINTANILLA WITHIN REACH. ALL PATIENT CARE NEEDS HAVE BEEN MET ANTICIPATED. ENDORSING TO AM SHIFT
[2021-11-11 07:05] LABS: BASOPHILS % (AUTO) 0.4 % (0.0-2.0); EOSINOPHILS % (AUTO) 1.7 % (0.0-6.0); HEMATOCRIT 34 % (33-45); HEMOGLOBIN 11.2 g/dL (11.5-14.8); LYMPHOCYTES # (AUTO) 2.3 K/uL (0.8-4.8); LYMPHOCYTES % (AUTO) 27.5 % (20.0-44.0); MEAN CORPUSCULAR HGB CONC 33 g/dl (31.0-36.0); MEAN CORPUSCULAR VOLUME 87 fL (82-100); MONOCYTES # (AUTO) 0.7 K/uL (0.1-1.30); NEUTROPHILS # (AUTO) 5.3 K/uL (1.8-8.9); NEUTROPHILS % (AUTO) 62.4 % (43.0-81.0); PLATELET COUNT (AUTO) 367 K/uL (150-450); RED BLOOD CELL COUNT(AUTO) 3.88 MIL/uL (4.0-5.2); WHITE BLOOD COUNT (AUTO) 8.5 K/uL (4.3-11.0)
[2021-11-11 07:22] LABS: ALBUMIN 2.9 g/dL (3.4-5.0); BILIRUBIN,TOTAL 0.2 mg/dL (0.2-1.0); CALCIUM, SERUM 8.9 mg/dL (8.5-10.1); CREATININE 0.6 mg/dL (0.6-1.3); POTASSIUM 3.8 mmol/L (3.5-5.1); TOTAL PROTEIN, SERUM 6.7 g/dL (6.4-8.2)
[2021-11-11 08:00] VITALS: BP 100/65
[2021-11-11] MEDS: GABAPENTIN 300 MG CAPSULE PO SCH ×3 (08:17→16:32)
[2021-11-11] MEDS: LIPASE/PROTEASE/AMYLASE 1 EACH CAPSULE.DR PO SCH ×3 (08:17→17:21)
[2021-11-11] MEDS: DIVALPROEX SODIUM 125 MG CAP.SPRINK PO SCH ×2 (08:17→16:32)
[2021-11-11] MEDS: METOPROLOL TARTRATE 25 MG TABLET PO SCH (08:19)
[2021-11-11] MEDS: VALSARTAN 40 MG TABLET PO SCH (08:19)
[2021-11-11] MEDS: AMLODIPINE BESYLATE 5 MG TABLET PO SCH (08:19)
--- NOTE | 2021-11-11 09:30 | NUR ---
RN-NOTES RECEIVED T.O ORDER FROM DR. RICH TO D/C ACCU CHECK NOTED AND CARRIED OUT.
[2021-11-11] MEDS: ACETAMINOPHEN 325 MG TABLET PO PRN ×2 (14:34→21:25)
--- NOTE | 2021-11-11 14:34 | NUR ---
RN-NOTES PATIENT C/O HEADACHE AND REQUESTING TYLENOL.TYLENOL 650MG P.O GIVEN PRN ORDER.
[2021-11-11 16:00] VITALS: BP 107/65
[2021-11-11 20:00] VITALS: BP 101/60
--- NOTE | 2021-11-11 21:25 | NUR ---
GPS RN NOTES PATIENT C/O HEADACHE AND REQUESTING FOR TYLENOL. PRN TYLENOL 650MG PO GIVEN. WILL CONTINUE TO MONITOR AND REASSESS.
[2021-11-11] MEDS: OLANZAPINE 2.5 MG TABLET PO SCH (21:35)
[2021-11-11] MEDS: TAMSULOSIN 0.4 MG CAP.SR.24H PO SCH (21:36)
[2021-11-11] MEDS: SIMVASTATIN 20 MG TABLET PO SCH (21:51)
[2021-11-11] MEDS: TEMAZEPAM 7.5 MG CAPSULE PO PRN (22:20)
--- NOTE | 2021-11-11 22:20 | NUR ---
GPS RN NOTES: INSOMNIA PATIENT C/O INABILITY TO SLEEP. PRN RESTORIL 7.5MG PO GIVEN. WILL CONTINUE TO MONITOR.
[2021-11-12] MEDS: LORAZEPAM 0.5 MG TABLET PO PRN (04:18)
--- NOTE | 2021-11-12 04:18 | NUR ---
GPS RN NOTES: ANXIETY PATIENT C/O FEELING ANXIOUS. PRN ATIVAN 0.5MG PO GIVEN. WILL CONTINUE TO MONITOR PATIENT'S SAFETY.
--- NOTE | 2021-11-12 04:30 | NUR ---
GPS RN NOTES: PATIENT C/O DIFFICULTY OF BREATHING. HOB ELEVATED, VITAL SIGNS TAKEN AND RECORDED BP 104/65, P90, R20, T98.2, O2 SATURATION FLUCTUATING FROM 88-90% ON ROOM AIR. PATIENT IS ON S/P TRACHEOSTOMY. PATIENT REFUSED TO COVER TRACH SITE WITH DRESSING. 0432- PAGED ECONOMIC DEVELOPER JAKOB, CALLED BACK NOTIFIED OF FINDING ASSESSMENT WITH NEW ORDERS OF O2 THERAPY PRN AND ALBUTEROL 2.5MG VIA NEB Q6HRS PRN. ALL ORDERS NOTED AND CARRIED OUT. WILL MONITOR PATIENT'S CLOSELY. 0434 - ON O2 INHALATION @4LPM O2 SAT WENT UP AND SATTING AT 94%. TITRATED TO 2LPM TO KEEP O2 SATURATION ABOVE 92%. RT CALLED FOR INHALATION TREATMENT INITIAL. 0450 - PATIENT IS CALM, NO C/O SOB AT THIS TIME. WILL CONTINUE TO MONITOR.
[2021-11-12 08:00] VITALS: BP 134/76
[2021-11-12] MEDS: GABAPENTIN 300 MG CAPSULE PO SCH ×3 (08:11→16:28)
[2021-11-12] MEDS: DIVALPROEX SODIUM 125 MG CAP.SPRINK PO SCH ×2 (08:11→16:28)
[2021-11-12] MEDS: LEVOTHYROXINE SODIUM 125 MCG TABLET PO SCH (08:11)
[2021-11-12] MEDS: PANTOPRAZOLE 40 MG TABLET.DR PO SCH ×2 (08:11→16:28)
[2021-11-12] MEDS: LIPASE/PROTEASE/AMYLASE 1 EACH CAPSULE.DR PO SCH ×3 (08:11→17:24)
[2021-11-12] MEDS: VALSARTAN 40 MG TABLET PO SCH (08:12)
[2021-11-12] MEDS: METOPROLOL TARTRATE 25 MG TABLET PO SCH (08:12)
[2021-11-12] MEDS: AMLODIPINE BESYLATE 5 MG TABLET PO SCH (08:12)
[2021-11-12] MEDS: ACETAMINOPHEN 325 MG TABLET PO PRN ×2 (12:08→20:09)
--- NOTE | 2021-11-12 12:53 | NUR ---
RN-NOTES PATIENT C/O HEADACHE AND REQUESTING TYLENOL.TYLENOL 650MG P.O GIVEN PRN ORDER.
[2021-11-12 16:00] VITALS: BP 100/62
--- NOTE | 2021-11-12 20:05 | NUR ---
GPS NURSING NOTE: PT C/O HEADACHE RATES PAIN 7/10 WITH THROBBING INTENSITY, PT GIVEN TYLENOL 650MG FOR PAIN. WILL REASSESS THE EFFECTIVENESS OF MEDICATION.
[2021-11-12 21:47] VITALS: BP 96/59
[2021-11-12] MEDS: SIMVASTATIN 20 MG TABLET PO SCH (21:48)
[2021-11-12] MEDS: TAMSULOSIN 0.4 MG CAP.SR.24H PO SCH (21:48)
[2021-11-12] MEDS: OLANZAPINE 2.5 MG TABLET PO SCH (21:49)
--- NOTE | 2021-11-12 22:05 | NUR ---
GPS NURSING NOTE: JAX HELD D/T PT LOW BLOOD PRESSURE LEVEL READINGS AT 96/59, 86/54, AND LAST V/S TAKEN @2200 @ 96/57. PT IS ENCOURAGE TO DRINK LIQUIDS THICKENED INTO HONEY CONSISTENCY.
[2021-11-13] MEDS: PANTOPRAZOLE 40 MG TABLET.DR PO SCH ×2 (06:43→16:30)
[2021-11-13] MEDS: LEVOTHYROXINE SODIUM 125 MCG TABLET PO SCH (06:43)
[2021-11-13 08:00] VITALS: BP 102/65
[2021-11-13] MEDS: LIPASE/PROTEASE/AMYLASE 1 EACH CAPSULE.DR PO SCH ×3 (08:00→18:05)
[2021-11-13] MEDS: AMLODIPINE BESYLATE 5 MG TABLET PO SCH (09:00)
[2021-11-13] MEDS: METOPROLOL TARTRATE 25 MG TABLET PO SCH (09:00)
[2021-11-13] MEDS: VALSARTAN 40 MG TABLET PO SCH (09:00)
[2021-11-13] MEDS: DIVALPROEX SODIUM 125 MG CAP.SPRINK PO SCH ×2 (09:37→17:43)
[2021-11-13] MEDS: GABAPENTIN 300 MG CAPSULE PO SCH ×3 (09:37→17:43)
--- NOTE | 2021-11-13 13:00 | NUR ---
Patient remains isolative and withdrawn Mood depressed flat affect Patient stay in her room .Continue to monitor for safety q15 minutes encourage patient to verbalize feelings and thoughts redirect as needed.
[2021-11-13] MEDS: ACETAMINOPHEN 325 MG TABLET PO PRN ×2 (13:27→21:47)
[2021-11-13 16:00] VITALS: BP 106/68
--- NOTE | 2021-11-13 21:45 | NUR ---
GPS RN NOTE PT C/O HEADACHE 12/22, TYLENOL 650 MG PO GIVEN. CONTINUE TO MONITOR ER.
[2021-11-13] MEDS: TAMSULOSIN 0.4 MG CAP.SR.24H PO SCH (21:47)
[2021-11-13] MEDS: SIMVASTATIN 20 MG TABLET PO SCH (21:48)
[2021-11-13] MEDS: OLANZAPINE 2.5 MG TABLET PO SCH (21:48)
--- NOTE | 2021-11-13 22:45 | NUR ---
GPS RN NOTE HEADACHE SUBSIDED.
[2021-11-14] MEDS: LORAZEPAM 0.5 MG TABLET PO PRN (04:03)
--- NOTE | 2021-11-14 04:04 | NUR ---
GPS RN NOTE PT WOKE AND ANXIOUS AND C/O SOB, B TX GIVEN. ALSO ATIVAN 0.5 MG PO GIVEN.
[2021-11-14] MEDS: ALBUTEROL FS 2.5 MG/0.5 ML VIAL.NEB NEB PRN (04:22)
--- NOTE | 2021-11-14 05:04 | NUR ---
GPS RN NOTE ANXIETY SUBSIDED. PT FALL BACK TO SLEEP. NO DISTRESS NOTED.
[2021-11-14 08:00] VITALS: BP 116/75
[2021-11-14] MEDS: GABAPENTIN 300 MG CAPSULE PO SCH ×3 (08:41→17:48)
[2021-11-14] MEDS: PANTOPRAZOLE 40 MG TABLET.DR PO SCH ×2 (08:41→17:48)
[2021-11-14] MEDS: LEVOTHYROXINE SODIUM 125 MCG TABLET PO SCH (08:41)
[2021-11-14] MEDS: DIVALPROEX SODIUM 125 MG CAP.SPRINK PO SCH ×3 (08:41→17:48)
[2021-11-14] MEDS: LIPASE/PROTEASE/AMYLASE 1 EACH CAPSULE.DR PO SCH ×3 (08:41→17:48)
[2021-11-14] MEDS: METOPROLOL TARTRATE 25 MG TABLET PO SCH (08:42)
[2021-11-14] MEDS: AMLODIPINE BESYLATE 5 MG TABLET PO SCH (08:42)
[2021-11-14] MEDS: VALSARTAN 40 MG TABLET PO SCH (08:42)
--- NOTE | 2021-11-14 10:50 | NUR ---
MARY Family Contact: MARY contacted Daniel ([phone]) and left a detailed voicemail that pt will discharge to [facility] 11/15/2021.
--- NOTE | 2021-11-14 11:01 | NUR ---
MARY Family Contact: MARY contacted Daniel ([phone]) and left a detailed voicemail that pt will discharge to [facility] on 11/17/2021 and stated doctor adjusted her medications.
[2021-11-14 17:15] VITALS: BP 118/77
[2021-11-14] MEDS: ACETAMINOPHEN 325 MG TABLET PO PRN ×2 (17:48→20:27)
[2021-11-14 19:41] VITALS: BP 115/59
--- NOTE | 2021-11-14 20:29 | NUR ---
GPS RN NOTES: PATIENT C/O HEADACHE, TYLENOL 650MG GIVEN PO/CRUSHED AT 2026. WILL CONTINUE TO MONITOR.
[2021-11-14] MEDS: TAMSULOSIN 0.4 MG CAP.SR.24H PO SCH (21:10)
[2021-11-14] MEDS: OLANZAPINE 2.5 MG TABLET PO SCH (21:11)
[2021-11-14] MEDS: SIMVASTATIN 20 MG TABLET PO SCH (21:11)
[2021-11-14] MEDS: TEMAZEPAM 7.5 MG CAPSULE PO PRN (21:50)
--- NOTE | 2021-11-14 21:53 | NUR ---
GPS RN NOTES: PATIENT REQUESTED FOR SLEEP MEDICATION. RESTORIL 7.5MG/1CAP GIVEN PO AT 2150. WILL CONTINUE TO MONITOR.
[2021-11-15] MEDS: PANTOPRAZOLE 40 MG TABLET.DR PO SCH ×2 (06:36→16:30)
[2021-11-15] MEDS: LEVOTHYROXINE SODIUM 125 MCG TABLET PO SCH (06:36)
[2021-11-15 08:00] VITALS: BP 108/75
[2021-11-15] MEDS: GABAPENTIN 300 MG CAPSULE PO SCH ×3 (08:06→17:42)
[2021-11-15] MEDS: LIPASE/PROTEASE/AMYLASE 1 EACH CAPSULE.DR PO SCH ×3 (08:06→17:41)
[2021-11-15] MEDS: DIVALPROEX SODIUM 125 MG CAP.SPRINK PO SCH ×3 (08:06→17:42)
[2021-11-15] MEDS: METOPROLOL TARTRATE 25 MG TABLET PO SCH (08:07)
[2021-11-15] MEDS: VALSARTAN 40 MG TABLET PO SCH (08:07)
[2021-11-15] MEDS: AMLODIPINE BESYLATE 5 MG TABLET PO SCH (08:08)
[2021-11-15] MEDS: ACETAMINOPHEN 325 MG TABLET PO PRN ×2 (08:13→17:49)
--- NOTE | 2021-11-15 08:13 | NUR ---
TYLENOL 650MG GIVEN FOR PAIN PRN. WILL CONTINUE TO MONITOR.
[2021-11-15] MEDS: OLANZAPINE 2.5 MG TABLET PO SCH ×3 (12:25→21:33)
[2021-11-15 16:00] VITALS: BP 113/71
--- NOTE | 2021-11-15 16:20 | NUR ---
PT VOMITED. VS: 114/75, 100, 20, 96% R/A. INFORMED DR SIBLEY. DR SIBLEY ORDERED CRX STAT R/O ASPIRATION.
--- NOTE | 2021-11-15 17:24 | NUR ---
CRX RESULTS FOR POSS ASPIRATION DUE TO VOMITING IS NEGATIVE.
--- NOTE | 2021-11-15 17:36 | NUR ---
DR GARCIA AND DR SIBLEY INFORMED OF PT'S CRX RESULTS. NNO GIVEN.
--- NOTE | 2021-11-15 17:49 | NUR ---
TYLENOL 650MG GIVEN FOR PAIN PRN. WILL CONTINUE TO MONITOR.
[2021-11-15 20:00] VITALS: BP 115/67
[2021-11-15] MEDS: SIMVASTATIN 20 MG TABLET PO SCH (21:33)
[2021-11-15] MEDS: TAMSULOSIN 0.4 MG CAP.SR.24H PO SCH (21:33)
[2021-11-15] MEDS: TEMAZEPAM 7.5 MG CAPSULE PO PRN (22:21)
--- NOTE | 2021-11-15 22:22 | NUR ---
GPS RN NOTES: PATIENT REQUESTED FOR SLEEP MEDICATION. RESTORIL 7.5MG GIVEN PO AT 2221. WILL CONTINUE TO MONITOR.
[2021-11-16] MEDS: ACETAMINOPHEN 325 MG TABLET PO PRN ×3 (02:31→21:58)
--- NOTE | 2021-11-16 02:39 | NUR ---
GPS RN NOTES: PATIENT C/O OF THROAT PAIN. TYLENOL 650MG GIVEN PO/CRUSHED AT 0231. WILL CONTINUE TO MONITOR.
--- NOTE | 2021-11-16 02:50 | NUR ---
GPS RN NOTES: PATIENT C/O OF SOB, RT CALLED AND ALBUTEROL 2.5MG ADMINISTERED VIA NEBULIZER.
--- NOTE | 2021-11-16 03:51 | NUR ---
GPS RN NOTES: PATIENT IS COMPLAINING OF FEELING HOT BUT REFUSING STAFF TO TURN ON THE AIR CONDITIONER IN THE ROOM. RESTLESS, V/S AT 0340 BP103/60, P92, O295%, R19. PATIENT CURRENTLY LAYING IN BED. WILL CONTINUE TO MONITOR.
[2021-11-16] MEDS: ALBUTEROL FS 2.5 MG/0.5 ML VIAL.NEB NEB PRN (03:52)
--- NOTE | 2021-11-16 06:40 | NUR ---
GPS RN CLOSING NOTES: PATIENT IS CURRENTLY SLEEPING. PATIENT SLEPT 5HR THIS SHIFT. NO S/S OF DISTRESS. RESPIRATION EVEN AND UNLABORED WITH EQUAL RISE AND FALL OF THE CHEST, ON ROOM AIR. ALL PATIENT CARE NEEDS HAVE BEEN MET ANTICIPATED. WILL ENDORSE TO AM SHIFT.
[2021-11-16] MEDS: LEVOTHYROXINE SODIUM 125 MCG TABLET PO SCH (07:42)
[2021-11-16] MEDS: PANTOPRAZOLE 40 MG TABLET.DR PO SCH ×2 (07:42→16:42)
[2021-11-16] MEDS: LIPASE/PROTEASE/AMYLASE 1 EACH CAPSULE.DR PO SCH ×3 (07:43→17:04)
[2021-11-16 08:00] VITALS: BP 117/78
[2021-11-16] MEDS: DIVALPROEX SODIUM 125 MG CAP.SPRINK PO SCH ×3 (08:00→16:42)
[2021-11-16] MEDS: GABAPENTIN 300 MG CAPSULE PO SCH ×3 (08:00→16:42)
[2021-11-16] MEDS: VALSARTAN 40 MG TABLET PO SCH (08:01)
[2021-11-16] MEDS: OLANZAPINE 2.5 MG TABLET PO SCH ×2 (08:01→16:42)
[2021-11-16] MEDS: METOPROLOL TARTRATE 25 MG TABLET PO SCH (08:01)
[2021-11-16] MEDS: AMLODIPINE BESYLATE 5 MG TABLET PO SCH (08:03)
[2021-11-16 16:00] VITALS: BP 100/64
[2021-11-16 20:00] VITALS: BP 98/60
[2021-11-16] MEDS: TAMSULOSIN 0.4 MG CAP.SR.24H PO SCH (21:04)
[2021-11-16] MEDS: SIMVASTATIN 20 MG TABLET PO SCH (21:05)
--- NOTE | 2021-11-16 21:59 | NUR ---
GPS RN NOTES: PATIENT C/O SORE THROAT. PRN TYLENOL 650MG PO GIVEN. WILL CONTINUE TO MONITOR AND REASSESS.
[2021-11-16] MEDS ORDERED: OLANZAPINE 2.5 MG TABLET PO SCH (22:00)
[2021-11-16] MEDS: TEMAZEPAM 7.5 MG CAPSULE PO PRN (22:11)
--- NOTE | 2021-11-16 22:11 | NUR ---
GPS RN NOTES: INSOMNIA PATIENT C/O INABILITY TO SLEEP. PRN RESTORIL 7.5MG PO GIVEN PER PATIENT'S REQUEST. WILL CONTINUE TO MONITOR.
[2021-11-17] MEDS: LEVOTHYROXINE SODIUM 125 MCG TABLET PO SCH (06:39)
[2021-11-17 08:00] VITALS: BP 99/66
--- NOTE | 2021-11-17 08:19 | NUR ---
SW Discharge Note: Patient will be discharged to a locked snf facility to [facility] [address] [place] [address]; ([phone]). Please arrange ambulance transportation. Human Resource Manager spoke with Ayah, Vermin Exterminator at [facility]; ([phone]), who stated patient will be accepted at facility today. Patient is alert and oriented x2, and is not able to plan for self-care at this time, but is willing to accept care provided for her at the facility. Patient denies any suicidal or homicidal ideations. Patient is aware and agreeable with discharge plans. Patients son in law Daniel ([phone]) and Maged ([phone]) are aware and agreeable with discharge. Patient will continue to follow-up with her (Psychiatrist) Dr. Baeza [address], [place] [address]; ([phone]) and (Exhauster) Dr. Sherman [address], [place] [address]; ([phone]). Patient presents with euthymic mood and congruent affect.
[2021-11-17] MEDS: DIVALPROEX SODIUM 125 MG CAP.SPRINK PO SCH ×2 (08:28→12:56)
[2021-11-17] MEDS: LIPASE/PROTEASE/AMYLASE 1 EACH CAPSULE.DR PO SCH ×2 (08:28→12:56)
[2021-11-17] MEDS: GABAPENTIN 300 MG CAPSULE PO SCH ×2 (08:28→12:56)
[2021-11-17] MEDS: PANTOPRAZOLE 40 MG TABLET.DR PO SCH (08:28)
[2021-11-17] MEDS: OLANZAPINE 2.5 MG TABLET PO SCH (08:28)
[2021-11-17] MEDS: METOPROLOL TARTRATE 25 MG TABLET PO SCH (08:29)
[2021-11-17 08:30] VITALS: BP 99/66
[2021-11-17] MEDS: VALSARTAN 40 MG TABLET PO SCH (08:30)
[2021-11-17] MEDS: AMLODIPINE BESYLATE 5 MG TABLET PO SCH (08:30)
--- NOTE | 2021-11-17 13:25 | NUR ---
RN-DISCHARGE NOTES PATIENT HAD A DISCHARGE ORDER FROM DR. GARCIA ( PSYCHIATRIST). DR. SIBLEY MEDICALLY DISCHARGE PATIENT ( CONTACT CENTER ASSOCIATE). PATIENT LEFT THE UNIT IN STABLE CONDITION ,A/O X3,NO ACUTE DISTRESS NOTED.AMBULATORY WITH STEADY GAIT. PATIENT DID NOT VERBALIZE SI/HI,DENIES VISUAL/AUDITORY HALLUCINATIONS AT THE TIME OF DISCHARGE. PATIENT WAS DISCHARGE WITH ALL HER BELONGINGS EXCEPT HER [place] BRAND MARKETING COORDINATOR LICENSE,PASSPORT AND UGALDE MONEY DUE TO UNABLE TO LOCATE THE SAID ITEMS. RETAIL SERVICE SPECIALIST ( [place]) WAS NOTIFIED BY THE LEGAL FINANCIAL SPECIALIST AND STATED THAT SHE WILL INVESTIGATE .LEGAL FINANCIAL SPECIALIST ADVICE THE PATIENT THAT SOON HER BELONGINGS BE FOUND THE HOSPITAL WILL RETURN TO HER. PATIENT WAS JOB ESTIMATOR BY AMBULANCE VIA GURNEY WITH TWO STAFF ASSIST.PATIENT DTR SUSANA WAS MADE AWARE BY THE LEGAL FINANCIAL SPECIALIST OF THE DISCHARGE.
--- NOTE | 2021-11-18 12:05 | NUR ---
BELONGINGS: SW gave Ysmin pepper picker from [facility] ([phone]) pt's belongings and also gave inventory list.
== END 2021-11-17 13:25 | DRG 885 ==
LOC: ER 10:49 → TRANSITION 13:58 → GPS 22:01
PROVIDERS: ADMIT Psychiatry & Neurology Psychosomatic Medicine; ATTEND Internal Medicine
DX: F25.9 Schizoaffective disorder, unspecified (principal); Z93.0 Tracheostomy status; E87.1 Hypo-osmolality and hyponatremia; F29 Unspecified psychosis not due to a substance or known physiological condition; E03.9 Hypothyroidism, unspecified; E78.5 Hyperlipidemia, unspecified; E86.0 Dehydration; I10 Essential (primary) hypertension; F60.9 Personality disorder, unspecified; Z85.819 Personal history of malignant neoplasm of unspecified site of lip, oral cavity, and pharynx; Z91.51 Personal history of suicidal behavior; F19.90 Other psychoactive substance use, unspecified, uncomplicated; Z73.6 Limitation of activities due to disability; D72.829 Elevated white blood cell count, unspecified; R13.10 Dysphagia, unspecified; C14.0 Malignant neoplasm of pharynx, unspecified; R79.89 Other specified abnormal findings of blood chemistry
CPT/HCPCS: 36415; 71045-TC; 74230-TC; 80048-TC; 80053-TC; 80061-TC; 80076-TC; 80164-TC; 81001; 82962-TC; 83735-TC; 84100-TC; 85025-TC; 87081-TC; 92521; 92526; 97116-TC; 97530-TC; A6403; G0480; J1815; J3490; J7042